=== PATIENT | female | born 1950 | race Two or more races ===

== ENCOUNTER 2022-02-21 22:25 | Inpatient (IN) | payer MEDICARE, MEDICAID ==
[~2022-02-21] VITALS: Ht 162.6 cm; Wt 59.4 kg
--- NOTE | 2022-02-21 22:50 | NUR ---
BLOOD COLLECTED AND SENT TO LAB
--- NOTE | 2022-02-21 22:50 | NUR ---
COVID SWAB DONE AND SENT TO LAB
--- NOTE | 2022-02-21 22:50 | NUR ---
PATIENT AT CT
--- NOTE | 2022-02-21 23:04 | NUR ---
SON IN LAW, MIGUELANGEL [phone]
--- NOTE | 2022-02-21 23:19 | NUR ---
INFLUENZA SWAB DONE AND SENT TO LAB
--- NOTE | 2022-02-21 23:19 | NUR ---
EKG DONE AT BEDSIDE
[2022-02-21] MEDS ORDERED: LEVETIRACETAM (500MG) 500 MG/5 ML VIAL IV ONE (23:33)
--- NOTE | 2022-02-21 23:36 | NUR ---
PATIENT HAD A SEIZURE, LASTED ABOUT A MINUTE. MD CALVERT
[2022-02-21] MEDS: LEVETIRACETAM (500MG) 1,000 MG in IV NS 0.9% 100 ML IV SCH (23:37)
[2022-02-21 23:51] LABS: SITE, VBG Other; VBG MetHb 0.5 %; VBG O2Hb 81.9 %; VENT MODE, VBG 4LPM N/C
[2022-02-22] MEDS ORDERED: IV NS 0.9% 1,000 ML BAG IV ONE ×2
[2022-02-22 00:09] LABS: BASOPHILS % (AUTO) 0.3 % (0.0-2.0); EOSINOPHILS % (AUTO) 0.5 % (0.0-6.0); HEMATOCRIT 32 % (33-45); HEMOGLOBIN 10.7 g/dL (11.5-14.8); LYMPHOCYTES % (AUTO) 27.6 % (20.0-44.0); MEAN CORPUSCULAR HGB CONC 33 g/dl (31.0-36.0); MEAN CORPUSCULAR VOLUME 85 fL (82-100); MONOCYTES # (AUTO) 0.8 K/uL (0.1-1.30); MONOCYTES % (AUTO) 7.6 % (2.0-12.0); NEUTROPHILS # (AUTO) 6.9 K/uL (1.8-8.9); PLATELET COUNT (AUTO) 288 K/uL (150-450); RED BLOOD CELL COUNT(AUTO) 3.78 MIL/uL (4.0-5.2); WHITE BLOOD COUNT (AUTO) 10.8 K/uL (4.3-11.0)
[2022-02-22 00:18] LABS: CARBON DIOXIDE 28 mmol/L (21-32); CHLORIDE 98 mmol/L (98-107); CREATININE 1.4 mg/dL (0.6-1.3); POTASSIUM 3.2 mmol/L (3.5-5.1); SODIUM SERUM 132 mmol/L (136-145); UREA NITROGEN, BLOOD 33 mg/dL (7-18)
[2022-02-22 00:21] LABS: ALANINE AMINOTRANSFERASE 27 U/L (12-78); ALBUMIN 3.5 g/dL (3.4-5.0); ALCOHOL, BLOOD < 3 mg/dL (0-0); ALKALINE PHOSPHATASE 82 U/L (46-116); ASPARTATE AMINOTRANSFERASE 15 U/L (15-37); BILIRUBIN,DIRECT 0.1 mg/dL (0.0-0.2); BILIRUBIN,TOTAL 0.5 mg/dL (0.2-1.0); TOTAL PROTEIN, SERUM 7.5 g/dL (6.4-8.2)
[2022-02-22 00:24] LABS: GLUCOSE 654 mg/dL (74-106)
[2022-02-22] MEDS ORDERED: LORAZEPAM INJ 2 MG/ML VIAL IV ONE ×2 (00:30)
--- NOTE | 2022-02-22 00:30 | NUR ---
md made aware another seizure, ativan 2mg ordered and given.
[2022-02-22 00:40] LABS: CREATINE KINASE, TOTAL 41 U/L (26-192)
[2022-02-22] MEDS ORDERED: Z GUARD REMEDY 4 OZ OINT TP PRN (01:00)
[2022-02-22] MEDS ORDERED: MORPHINE SULFATE INJ 4 MG/ML DISP.SYRIN IV PRN (01:00)
[2022-02-22] MEDS ORDERED: INSULIN REGULAR, HUMAN 100 UNIT/ML 10 ML VIAL SQ ONE (01:00)
[2022-02-22] MEDS ORDERED: DEXTROSE 50%-WATER 50 ML DISP.SYRIN IV PRN (01:00)
[2022-02-22] MEDS ORDERED: ACETAMINOPHEN 650 MG/SUPP.RECT RC PRN (01:00)
[2022-02-22] MEDS ORDERED: LORAZEPAM INJ 2 MG/ML VIAL IV PRN (01:00)
[2022-02-22] MEDS ORDERED: LEVETIRACETAM (500MG) 1,000 MG in IV NS 0.9% 100 ML IV SCH ×2 (01:00→21:00)
[2022-02-22] MEDS ORDERED: ONDANSETRON HCL/PF 4 MG/2 ML VIAL IVP PRN (01:00)
[2022-02-22] MEDS ORDERED: INSULIN REGULAR, HUMAN 100 UNIT/ML 10 ML VIAL ONE (01:09)
[2022-02-22] MEDS ORDERED: POTASSIUM CL. PREMIX PERIPHER. 50 ML ONE (01:09)
[2022-02-22] MEDS: POTASSIUM CL. PREMIX PERIPHER. 50 ML IV SCH ×4 (01:11→05:35)
[2022-02-22 01:14] LABS: THYROID STIMULATING HORMONE 3.641 uIU/mL (0.358-3.74)
[2022-02-22 01:20] LABS: BILIRUBIN,URINE NEGATIVE (NEGATIVE); COLOR,URINE YELLOW (YELLOW); LEUKOCYTE ESTERASE ,URINE NEGATIVE (NEGATIVE); NITRITE, URINE NEGATIVE (NEGATIVE); PH,URINE 5.5 (5.0-8.0); PROTEIN,URINE 2+ mg/dl (NEGATIVE); UGLUCOSE 3+ mg/dL (NEGATIVE); UROBILINOGEN,URINE 0.2 EU/dL (0.2)
[2022-02-22 01:23] LABS: BACTERIA,URINE Rare /HPF (None Seen); RBC,URINE 0-2 /HPF (0-2); SQUAMOUS EPITHELIAL CELL,UR Few /HPF (None Seen); WBC,URINE 0-2 /HPF (0-3)
--- NOTE | 2022-02-22 01:35 | NUR ---
GAVE REPORT TO PREMA CUNNINGHAM
--- NOTE | 2022-02-22 02:00 | NUR ---
BALLING MACHINE OPERATOR NOTE PT COME FROM ER WITH DX OF NEW ONSET SEIZURE. PT A/O X0, NOT ABLE TO VERBALIZE NEEDS. PT HAS BRUISES TO LEFT BREAST, AND LEFT BACK, SHOULDER. ADMISSION ASSESSMENT COMPLETED. PT RECEIVING POTASSIUM D/T K: 3.1. SAFETY MEASURES IN PLACE: BED IN LOW POSITION, SR UP X2. WILL CONTINUE TO MONITOR PT.
--- NOTE | 2022-02-22 02:09 | NUR ---
PATIENT TRANSFERED VIA ACLS PROTOCOL. TO BED 310-2.
[2022-02-22] MEDS ORDERED: POTASSIUM CHLORIDE 10 MEQ/50 ML PREMIXED IVPB FOR PERIPHERAL LINE IV ONE (02:30)
[2022-02-22 03:19] VITALS: BP_SYST 145; BP_SYST 85; BP_DIAS 59; BP_DIAS 60
[2022-02-22 04:56] VITALS: BP 181/87
[2022-02-22] MEDS: ENOXAPARIN SODIUM 40 MG/0.4 ML DISP.SYRIN SQ SCH ×2 (05:48→23:11)
[2022-02-22 07:00] VITALS: BP 191/91
--- NOTE | 2022-02-22 07:10 | NUR ---
TOLL SETTLEMENT CLERK CLOSING NOTE PT LEFT IN BED, IN STABLE CONDITION. WILL ENDORSE TO AM SHIFT NURSE FOR LEONARD.
[2022-02-22] MEDS: INSULIN REGULAR, HUMAN 100 UNIT/ML 3 ML VIAL SQ PRN ×3 (07:30→23:18)
--- NOTE | 2022-02-22 08:10 | NUR ---
SAFETY CLOTHING AND EQUIPMENT DEVELOPER OPENING NOTE RECEIVED PATIENT ON BED. PATIENT LETHARGIC. NO EYE OPENING, LOCALIZES PAIN. SLUGGISH PUPILLARY REACTION (S/P CATARACT EXTRACTION HX). ON ROOM AIR WITH EQUAL AND UNLABORED BREATHING SATURATING AT 96%. WITH IV ACCESS ON THE LEFT WRIST G20, WITH NS RUNNING AT 75 ML/HR, INFUSING WELL. WITH LOZANO CATHETER TO URINE BAG, WITH LIGHT YELLOW URINE DRAINING VIA GRAVITY. WITH BILATERAL RESTRAINT RELATED TO PULLINJG OUT OF LINES. SAFETY MEASURES ENSURED WITH BED ON LOWEST, LOCKED POSITION, CALL LIGHT WITHIN REACH AT ALL TIMES. WILL CONTINUE WITH PLAN OF CARE.
[2022-02-22] MEDS: BLOOD SUGAR DIAGNOSTIC 1 EACH STRIP IN SCH ×4 (08:43→23:11)
[2022-02-22] MEDS: PANTOPRAZOLE 40 MG VIAL IV SCH (08:51)
[2022-02-22] MEDS ORDERED: ERGO500093 PO (10:02)
[2022-02-22] MEDS ORDERED: OMEP20CA15 PO (10:02)
[2022-02-22] MEDS ORDERED: DONE5TAB34 PO (10:02)
[2022-02-22] MEDS ORDERED: ASPI-1420 PO (10:02)
[2022-02-22] MEDS ORDERED: ATOR10TA PO (10:02)
[2022-02-22] MEDS ORDERED: FERR325T24 PO (10:02)
[2022-02-22] MEDS ORDERED: METF-440 PO (10:02)
[2022-02-22] MEDS ORDERED: LINA5TAB PO (10:02)
[2022-02-22] MEDS ORDERED: LOSA50TA39 PO (10:02)
[2022-02-22] MEDS ORDERED: GLIM4TAB37 PO (10:02)
[2022-02-22] MEDS ORDERED: INSU100I26 SQ (10:55)
[2022-02-22] MEDS ORDERED: CYAN10006 PO (10:55)
[2022-02-22 12:00] VITALS: BP 161/98
--- NOTE | 2022-02-22 12:00 | NUR ---
DRY CHARGE PROCESS ATTENDANT NOTE PATIENT NOTED TO BE RESTLESS DURING VS CHECK KICKING AND WAVING HER ARMS.
[2022-02-22] MEDS: LEVETIRACETAM (500MG) 1,000 MG in IV NS 0.9% 100 ML IV SCH (12:21)
[2022-02-22 16:00] VITALS: BP 161/98
--- NOTE | 2022-02-22 17:00 | NUR ---
CANVAS BASTER JUMPBASTING NOTE PATIENT NOTED TO BE RESTLESS DURING VS CHECK KICKING AND WAVING HER ARMS.
--- NOTE | 2022-02-22 17:33 | NUR ---
HOME HEALTH INFORMATION [facility]. [address] [facility] [place] [address] TEL NO. FAX NO.
[2022-02-22] MEDS: IV NS 0.9% 1,000 ML IV PRN (17:44)
[2022-02-22] MEDS: ATORVASTATIN 10 MG TABLET PO SCH (18:00)
--- NOTE | 2022-02-22 19:04 | NUR ---
ANNEALING TORCH OPERATOR NOTE Patient on bed resting in bed and becomes combative with tactile stimulus. Mumbles sounds but incoherent. On nasal cannula @ 3L with no signs of distress noted. IV access on the left wrist G20 with NS running @ 75ml/hr, infusing well. providd left arm sling but patient keeps on removing. On rosas catheter to urine bag with light yellow urine. With bilateral restraint related to pulling out of lines. Safety measures given with bed on lowest. locked position, call light within reach. Endorsed to next shift for continuity of care.
--- NOTE | 2022-02-22 19:35 | NUR ---
CORN GRINDER OPENING NOTE Patient on bed resting in bed and becomes combative with tactile stimulus. Mumbles sounds but incoherent. On room air with no signs of distress noted. IV access on the left wrist G20 with NS running @ 75ml/hr, infusing well. provided left arm sling but patient keeps on removing. On rosas catheter to urine bag with light yellow urine. With bilateral restraint related to pulling out of lines. Safety measures given with bed on lowest. locked position, call light within reach.
[2022-02-22 20:00] VITALS: BP 165/96
[2022-02-22] MEDS: LEVETIRACETAM (500MG) 500 MG in IV NS 0.9% 100 ML IV SCH (21:21)
[2022-02-23] VITALS: BP 100/69
--- NOTE | 2022-02-23 | NUR ---
RN NOTE PT PULLED OUT BOTH IVS. CATHETER INTACT. CLEAN DRY DRESISNG PLACED. NEW IV ACCESS ON THE L HAND 22G. TOLERATED WELL.
[2022-02-23 04:00] VITALS: BP 150/64
[2022-02-23] MEDS: BLOOD SUGAR DIAGNOSTIC 1 EACH STRIP IN SCH ×3 (05:00→17:38)
[2022-02-23] MEDS: INSULIN REGULAR, HUMAN 100 UNIT/ML 3 ML VIAL SQ PRN ×3 (05:01→17:41)
[2022-02-23 05:34] LABS: BASOPHILS # (AUTO) 0.1 K/uL (0.0-0.2); BASOPHILS % (AUTO) 0.4 % (0.0-2.0); HEMATOCRIT 31 % (33-45); HEMOGLOBIN 10.6 g/dL (11.5-14.8); LYMPHOCYTES # (AUTO) 1.6 K/uL (0.8-4.8); LYMPHOCYTES % (AUTO) 11.3 % (20.0-44.0); MEAN CORPUSCULAR HGB CONC 34 g/dl (31.0-36.0); MEAN CORPUSCULAR VOLUME 83 fL (82-100); MONOCYTES # (AUTO) 0.7 K/uL (0.1-1.30); MONOCYTES % (AUTO) 5.2 % (2.0-12.0); NEUTROPHILS % (AUTO) 83.1 % (43.0-81.0); PLATELET COUNT (AUTO) 284 K/uL (150-450); RED BLOOD CELL COUNT(AUTO) 3.79 MIL/uL (4.0-5.2); WHITE BLOOD COUNT (AUTO) 14.4 K/uL (4.3-11.0)
[2022-02-23 05:59] LABS: CALCIUM, SERUM 8.6 mg/dL (8.5-10.1); CREATININE 0.9 mg/dL (0.6-1.3); MAGNESIUM 1.6 mg/dL (1.8-2.4); PHOSPHORUS 2.1 mg/dL (2.5-4.9)
[2022-02-23 06:04] LABS: POTASSIUM 2.7 mmol/L (3.5-5.1)
[2022-02-23 06:11] LABS: THYROID STIMULATING HORMONE 0.277 uIU/mL (0.358-3.74)
--- NOTE | 2022-02-23 06:30 | NUR ---
RN NOTE PT K 2.7 THIS MORNING REPORTED TO PRODUCTION TOOL ENGINEER KAMILLA WITH ORDER FOR KCL 60 MEQ X1 ORDER NOTED.
--- NOTE | 2022-02-23 06:31 | NUR ---
TUBER HELPER CLOSING NOTE Patient on bed resting in bed and becomes combative with tactile stimulus. Mumbles sounds but incoherent. On room air with no signs of distress noted. IV access on the left hand G22 with NS running @ 75ml/hr, infusing well. provided left arm sling but patient keeps on removing. On rosas catheter to urine bag with light yellow urine with total ouput of 1450cc. With bilateral restraint related to pulling out of lines. Safety measures given with bed on lowest. locked position, call light within reach. will endorse care to day shift nurse.
--- NOTE | 2022-02-23 07:29 | NUR ---
HOSE SPRAYER OPENING NOTE RECEIVED PT ASLEEP IN BED, EASILY AROUSED. PT A/O X0, OPENS EYES TO STIMULI, LETHARGIC. ON ROOM AIR, TOLERATING WELL. NO SOB NOTED. NOT ANY SIGN OF RESPIRATORY DISTRESS. ON TELE ACCESSORIES REPAIRER WITH CURRENT READING OF SINUS TACH, HR 105. NO SIGNS OF CARDIAC DISTRESS NOTED AT THIS TIME. IV ACCESS IN LEFT HAND G#20 INTACT AND PATENT WITH NS INFUSING AT 75ML/HR. SAFETY MEASURES IN PLACE: BED IN LOWEST AND LOCKED POSITION, SIDE RAILS UPX2, BED ALARM ON, AND CALL LIGHT WITHIN REACH. WILL CONTINUE TO MONITOR PT.
[2022-02-23] MEDS: POTASSIUM CHLORIDE 10 MEQ/50 ML PREMIXED IVPB FOR PERIPHERAL LINE IV SCH ×6 (07:31→13:05)
[2022-02-23 08:00] VITALS: BP 124/87
[2022-02-23] MEDS: FERROUS SULFATE (325 MG) 325 MG/TAB TABLET PO SCH (09:00)
[2022-02-23] MEDS: DONEPEZIL 5 MG TABLET PO SCH (09:00)
[2022-02-23] MEDS: LOSARTAN POTASSIUM 50 MG TABLET PO SCH (09:00)
[2022-02-23] MEDS: ASPIRIN EC 81 MG TABLET.DR PO SCH (09:00)
[2022-02-23] MEDS: PANTOPRAZOLE 40 MG VIAL IV SCH (09:20)
[2022-02-23] MEDS: LEVETIRACETAM (500MG) 500 MG in IV NS 0.9% 100 ML IV SCH (09:22)
[2022-02-23] MEDS: POTASSIUM PHOSPHATE MM 7.5 MMOL in IV NS 0.9% 100 ML IV SCH ×4 (11:54→22:04)
[2022-02-23] MEDS: IV NS 0.9% 1,000 ML IV PRN (11:56)
--- NOTE | 2022-02-23 11:58 | NUR ---
RN NOTE POTASSIUM PHOSPHATE IV NOT ADMINISTERED. MEDICATION NOT AVAILABLE. FOLLOWED UP WITH PHARMACIST AND PER PHARMACIST THEY WILL SEND THE MEDICATION. Addendum: 02/23/22 at 1653 by ZENON ROD RN DELETE ENTRY WRONG TIME
[2022-02-23] MEDS: Magnesium 1GM/D5W 100ML PREMIX 100 ML IV SCH ×2 (12:31→13:49)
--- NOTE | 2022-02-23 14:25 | NUR ---
RN NOTE ASSESSED PT'S BP AND IT WAS 180/115 AUTOMATIC. REASSESSED PT'S BP USING MANUALLY AND IT WAS 170/100. CALLED DR. SANABRIA AND MADE HIM AWARE OF PT'S BP AND THAT PT IS CURRENTLY NPO. DR. KHAN ORDERED TO START PT ON CLONIDINE PATCH 0.2MG EVERY 7DAYS. ORDERS CARRIED OUT.
[2022-02-23] MEDS ORDERED: CLONIDINE HCL 0.2MG/24H PTWK 1 EA PATCH TD SCH (15:00)
--- NOTE | 2022-02-23 15:00 | NUR ---
RN NOTE POTASSIUM PHOSPHATE IV NOT ADMINISTERED. MEDICATION NOT AVAILABLE. FOLLOWED UP WITH PHARMACIST AND PER PHARMACIST THEY WILL SEND THE MEDICATION.
[2022-02-23 16:00] VITALS: BP 156/85
--- NOTE | 2022-02-23 16:27 | NUR ---
RN NOTE POTASSIUM PHOSPHATE IV MEDICATION JUST RECEIVED FROM PHARMACY AND ADMINISTERED TO THE PT ORDERED.
[2022-02-23] MEDS: ATORVASTATIN 10 MG TABLET PO SCH (17:22)
[2022-02-23] MEDS ORDERED: POTASSIUM CHLORIDE 10 MEQ/50 ML PREMIXED IVPB FOR PERIPHERAL LINE IV ONE (17:30)
--- NOTE | 2022-02-23 19:35 | NUR ---
SEPTIC CLEANER OPENING NOTE PT ASLEEP IN BED, EASILY AROUSED. PT A/O X0, OPENS EYES TO STIMULI, LETHARGIC. ON ROOM AIR, TOLERATING WELL. NO SOB NOTED. NOT ANY SIGN OF RESPIRATORY DISTRESS. ON TELE SOLE RUFFER WITH CURRENT READING OF SINUS TACH, HR 102. NO SIGNS OF CARDIAC DISTRESS NOTED AT THIS TIME. IV ACCESS IN RAMIREZ G#18 MIDLINE INTACT AND PATENT WITH POTASSIUM PHOSPHATE INFUSING. TOLERATING WELL. IV ACCESS ON LEFT HAND G#20 INTACT AND PATENT SALINE LOCK. ALL NEEDS ATTENDED. KEPT CLEAN AND COMFORTABLE AT ALL TIMES. SAFETY MEASURES IN PLACE: BED IN LOWEST AND LOCKED POSITION, SIDE RAILS UPX2, BED ALARM ON, AND CALL LIGHT WITHIN REACH.
--- NOTE | 2022-02-23 19:42 | NUR ---
CARDIAC CARE NURSE CLOSING NOTE PT ASLEEP IN BED, EASILY AROUSED. PT A/O X0, OPENS EYES TO STIMULI, LETHARGIC. ON ROOM AIR, TOLERATING WELL. NO SOB NOTED. NOT ANY SIGN OF RESPIRATORY DISTRESS. ON TELE HEAD SHIPPER WITH CURRENT READING OF SINUS TACH, HR 102. NO SIGNS OF CARDIAC DISTRESS NOTED AT THIS TIME. IV ACCESS IN RAMIREZ G#18 MIDLINE INTACT AND PATENT WITH POTASSIUM PHOSPHATE INFUSING. TOLERATING WELL. IV ACCESS ON LEFT HAND G#20 INTACT AND PATENT SALINE LOCK. ALL NEEDS ATTENDED. KEPT CLEAN AND COMFORTABLE AT ALL TIMES. SAFETY MEASURES IN PLACE: BED IN LOWEST AND LOCKED POSITION, SIDE RAILS UPX2, BED ALARM ON, AND CALL LIGHT WITHIN REACH. ENDORSED TO COMMUNITY MARKETING MANAGER NURSE FOR LEONARD.
[2022-02-23] MEDS: LEVETIRACETAM (500MG) 250 MG in IV NS 0.9% 100 ML IV SCH (20:35)
[2022-02-23 20:53] VITALS: BP 164/76
[2022-02-23] MEDS: ENOXAPARIN SODIUM 40 MG/0.4 ML DISP.SYRIN SQ SCH (21:54)
[2022-02-24] MEDS: BLOOD SUGAR DIAGNOSTIC 1 EACH STRIP IN SCH ×5 (00:07→21:07)
[2022-02-24] MEDS: INSULIN REGULAR, HUMAN 100 UNIT/ML 3 ML VIAL SQ PRN ×5 (00:08→21:08)
[2022-02-24 00:21] VITALS: BP 155/79
[2022-02-24 04:54] VITALS: BP 167/96
--- NOTE | 2022-02-24 06:16 | NUR ---
RN NOTE PT NOTED MORE AWAKE AND ALERT ABLE TO FOLLOW SIMPLE COMMANDS. NURSING SWALLOW EVAL WAS DONE AT BEDSIDE PT WAS ABLE TO DRINK WATER WITHOUT COUGHING. SWALLOW ORDER PLACED TO SEE IF PTS DIET CAN BE ADVANCED.
[2022-02-24 06:30] LABS: BASOPHILS % (AUTO) 0.2 % (0.0-2.0); HEMATOCRIT 32 % (33-45); HEMOGLOBIN 10.4 g/dL (11.5-14.8); LYMPHOCYTES # (AUTO) 1.6 K/uL (0.8-4.8); LYMPHOCYTES % (AUTO) 11.5 % (20.0-44.0); MEAN CORPUSCULAR HGB CONC 33 g/dl (31.0-36.0); MEAN CORPUSCULAR VOLUME 84 fL (82-100); MONOCYTES # (AUTO) 0.8 K/uL (0.1-1.30); MONOCYTES % (AUTO) 6.1 % (2.0-12.0); NEUTROPHILS # (AUTO) 11.3 K/uL (1.8-8.9); NEUTROPHILS % (AUTO) 82.2 % (43.0-81.0); PLATELET COUNT (AUTO) 265 K/uL (150-450); RED BLOOD CELL COUNT(AUTO) 3.73 MIL/uL (4.0-5.2); WHITE BLOOD COUNT (AUTO) 13.7 K/uL (4.3-11.0)
--- NOTE | 2022-02-24 06:36 | NUR ---
LITHOGRAPHIC PLATE MAKER APPRENTICE CLOSING NOTE PT ASLEEP IN BED, EASILY AROUSED. PT A/O X1-2, OPENS EYES TO STIMULI. ON ROOM AIR, TOLERATING WELL. NO SOB NOTED. NOT ANY SIGN OF RESPIRATORY DISTRESS. ON TELE CORE CHECKER WITH CURRENT READING OF SINUS TACH, HR 105. NO SIGNS OF CARDIAC DISTRESS NOTED AT THIS TIME. IV ACCESS IN RAMIREZ G#18 MIDLINE INTACT AND PATENT S/L. TOLERATING WELL. IV ACCESS ON LEFT HAND G#20 INTACT AND PATENT SALINE LOCK. ALL NEEDS ATTENDED. KEPT CLEAN AND COMFORTABLE AT ALL TIMES. SAFETY MEASURES IN PLACE: BED IN LOWEST AND LOCKED POSITION, SIDE RAILS UPX2, BED ALARM ON, AND CALL LIGHT WITHIN REACH. WILL ENDORSE CARE TO DAY SHIFT NURSE.
[2022-02-24 07:01] LABS: CALCIUM, SERUM 8.5 mg/dL (8.5-10.1); CREATININE 1.1 mg/dL (0.6-1.3); MAGNESIUM 2.3 mg/dL (1.8-2.4); PHOSPHORUS 4.6 mg/dL (2.5-4.9); POTASSIUM 3.5 mmol/L (3.5-5.1)
--- NOTE | 2022-02-24 07:28 | NUR ---
ROADS SUPERVISOR OPENING NOTE RECEIVED PT ASLEEP IN BED, EASILY AROUSED. PT A/O X1, WITH EPISODES OF CONFUSION. REORIENTED PT NEEDED. ON ROOM AIR, TOLERATING WELL. NO SOB NOTED. NOT ANY SIGN OF RESPIRATORY DISTRESS. ON TELE BATTERY STACKER WITH CURRENT READING OF SINUS TACH, HR 101. NO C/O CARDIAC DISTRESS VOICED OUT AT THIS TIME. IV ACCESS IN RAMIREZ G#18 MIDLINE AND LEFT HAND G#20 INTACT AND PATENT. SAFETY MEASURES IN PLACE: BED IN LOWEST AND LOCKED POSITION, SIDE RAILS UPX2, BED ALARM ON, KEPT HOB ELEVATED AND CALL LIGHT WITHIN REACH. WILL CONTINUE TO MONITOR PT.
[2022-02-24 08:00] VITALS: BP 158/93
[2022-02-24] MEDS: DONEPEZIL 5 MG TABLET PO SCH (09:00)
[2022-02-24] MEDS: ASPIRIN EC 81 MG TABLET.DR PO SCH (09:00)
[2022-02-24] MEDS: FERROUS SULFATE (325 MG) 325 MG/TAB TABLET PO SCH (09:00)
[2022-02-24] MEDS: LOSARTAN POTASSIUM 50 MG TABLET PO SCH (09:00)
[2022-02-24] MEDS: PANTOPRAZOLE 40 MG VIAL IV SCH (09:31)
[2022-02-24] MEDS: LEVETIRACETAM (500MG) 250 MG in IV NS 0.9% 100 ML IV SCH ×2 (09:41→20:23)
--- NOTE | 2022-02-24 13:26 | NUR ---
RN NOTE REASSESSED PT'S CURRENT ORIENTATION AND PT IS NOW A/OX1. PT IS REQUESTING FOR WATER. NURSING SWALLOW EVALUATION DONE WITH WATER AND PT PASSED. CALLED DR. KHAN AND MADE HIM AWARE AND ASKED HIM IF OK TO START THE PT ON CLEAR LIQUID DIET WHILE WAITING FOR THE ST FOR SWALLOW EVAL. DR. KHAN AGREED. ORDERS CARRIED OUT.
[2022-02-24 16:00] VITALS: BP 157/86
[2022-02-24] MEDS: ATORVASTATIN 10 MG TABLET PO SCH (18:14)
--- NOTE | 2022-02-24 18:20 | NUR ---
RN NOTE CALLED DR. KHAN AND MADE HIM AWARE THAT PT IS NOW ON CLEAR LIQUID DIET AND CLARIFIED THE NPO SLIDING SCALE ORDER. PER DR. KHAN TO DC PREVIOUS ORDER OF SLIDING SCALE AND CHANGED TO MILD ACHS SLIDING SCALE. ORDERS CARRIED OUT.
[2022-02-24] MEDS ORDERED: DEXTROSE 50%-WATER 50 ML DISP.SYRIN IV PRN (18:30)
--- NOTE | 2022-02-24 19:19 | NUR ---
DIRECTOR OF PUBLIC RELATIONS CLOSING NOTE PT ASLEEP IN BED, EASILY AROUSED. PT A/O X1, WITH EPISODES OF CONFUSION. REORIENTED PT NEEDED. ON ROOM AIR, TOLERATING WELL. NO SOB NOTED. NOT ANY SIGN OF RESPIRATORY DISTRESS. ON TELE ROCK WOOL APPLICATOR WITH CURRENT READING OF SINUS RHYTHM, HR 98. NO C/O CARDIAC DISTRESS VOICED OUT AT THIS TIME. IV ACCESS IN RAMIREZ G#18 MIDLINE AND LEFT HAND G#20 INTACT AND PATENT. LOZANO CATH IN PLACE AND DRAINING WELL. ALL NEEDS ATTENDED. KEPT CLEAN AND COMFORTABLE. TURNED AND REPOSITIONED Q2HRS AND NEEDED. SAFETY MEASURES IN PLACE: BED IN LOWEST AND LOCKED POSITION, SIDE RAILS UPX2, BED ALARM ON, KEPT HOB ELEVATED AND CALL LIGHT WITHIN REACH. ENDORSED TO PATTERN DATA OPERATOR NURSE FOR LEONARD.
--- NOTE | 2022-02-24 19:30 | NUR ---
PRODUCT INSPECTION SUPERVISOR OPENING NOTE RECEIVED PATIENT IN BED, ALERT AND ORIENTED X 2. ABLE TO MAKE NEEDS KNOWN. AFEBRILE AND NOT IN ANY FORM OF ACUTE DISTRESS. BREATHING EVEN AND NON LABORED. NO C/O PAIN OR DISCOMFORT AT THIS TIME. WITH IV ACCESS ON RAMIREZ 18G MIDLINE AND L HAND 22G-SL. ON TELE MONITORING. WITH SOFT WRIST RESTRAINTS, NOTED WITH GOOD SKIN INTEGRITY AND CIRCULATION. SAFETY MEASURES IN PLACE. KEPT BED IN LOCKED AND IN LOW POSITION. SIDE RAILS UP X2. ADVISED TO USE THE CALL LIGHT WHEN IN NEED OF ASSISTANCE.
[2022-02-24] MEDS: ENOXAPARIN SODIUM 40 MG/0.4 ML DISP.SYRIN SQ SCH (21:09)
[2022-02-25 05:39] LABS: ABG BASE EXCESS 4.5 mmol/L; ABG OXYGEN SATURATION 94.7 % (92.0-98.5); ABG PCO2 34.6 mmHg (35.0-45.0); ABG PH 7.517 (7.350-7.450); ABG PO2 71.7 mmHg (75.0-100.0); AaDO2 36.6 mmHg; COHb 0.2 % (0.5-1.5); MetHb 0.1 % (0.0-1.5); O2Hb 94.4 % (94.0-97.0); SITE, ABG Right Brachial; VENT MODE, BG ROOM AIR
--- NOTE | 2022-02-25 05:45 | NUR ---
STAT ABG completed
--- NOTE | 2022-02-25 06:30 | NUR ---
CLOTH OPENER HAND CLOSING NOTE PATIENT IN BED, SLEEPING INTERMITTENTLY. ABLE TO MAKE NEEDS KNOWN. AFEBRILE AND NOT IN ANY FORM OF ACUTE DISTRESS. BREATHING EVEN AND NON LABORED. NO C/O PAIN OR DISCOMFORT THROUGHOUT THE SHIFT. ON TELE MONITORING WITH CURRENT READING OF SR 89 WITH BBB. WITH IV ACCESS ON RAMIREZ 18G MIDLINE. WITH SOFT WRIST RESTRAINTS, NOTED WITH GOOD SKIN INTEGRITY AND CIRCULATION. WITH INTACT LOZANO CATHETER DRAINING WELL WITH YELLOW URINE OUTPUT, NO HEMATURIA OR SEDIMENTS NOTED WITH APPROX. 900ML. MONITORED FOR ANY S/SX. OF HYPO/HYPERGLYCEMIA. MEDICATED ORDERED. SAFETY MEASURES IN PLACE. KEPT BED IN LOCKED AND IN LOW POSITION. SIDE RAILS UP X2. ADVISED TO USE THE CALL LIGHT WHEN IN NEED OF ASSISTANCE. ALL NURSING NEEDS ATTENDED. ENDORSED TO INCOMING SHIFT FOR CONTINUITY OF CARE.
[2022-02-25] MEDS: BLOOD SUGAR DIAGNOSTIC 1 EACH STRIP IN SCH ×2 (06:31→11:25)
[2022-02-25 06:40] LABS: ALBUMIN 2.8 g/dL (3.4-5.0); BILIRUBIN,TOTAL 0.7 mg/dL (0.2-1.0); CALCIUM, SERUM 8.3 mg/dL (8.5-10.1); PHOSPHORUS 3.1 mg/dL (2.5-4.9); POTASSIUM 3.1 mmol/L (3.5-5.1); TOTAL PROTEIN, SERUM 6.2 g/dL (6.4-8.2)
[2022-02-25 07:42] LABS: BASOPHILS % (AUTO) 0.4 % (0.0-2.0); EOSINOPHILS % (AUTO) 0.2 % (0.0-6.0); HEMATOCRIT 30 % (33-45); LYMPHOCYTES # (AUTO) 2.5 K/uL (0.8-4.8); LYMPHOCYTES % (AUTO) 20.8 % (20.0-44.0); MEAN CORPUSCULAR HGB CONC 33 g/dl (31.0-36.0); MEAN CORPUSCULAR VOLUME 83 fL (82-100); MONOCYTES # (AUTO) 0.8 K/uL (0.1-1.30); MONOCYTES % (AUTO) 7.1 % (2.0-12.0); NEUTROPHILS # (AUTO) 8.5 K/uL (1.8-8.9); NEUTROPHILS % (AUTO) 71.5 % (43.0-81.0); PLATELET COUNT (AUTO) 240 K/uL (150-450); RED BLOOD CELL COUNT(AUTO) 3.59 MIL/uL (4.0-5.2); WHITE BLOOD COUNT (AUTO) 11.9 K/uL (4.3-11.0)
--- NOTE | 2022-02-25 07:53 | NUR ---
PHOTOGRAPHY PROFESSOR OPENING NOTE PATIENT AWAKE IN BED A/OX1-2 ,AFEBRILE AND NOT IN ANY FORM OF ACUTE DISTRESS. BREATHING EVEN AND NON LABORED. NO C/O PAIN OR DISCOMFORT THROUGHOUT THE SHIFT. ON TELE MONITORING WITH CURRENT READING OF SR 90 WITH BBB. WITH IV ACCESS ON RAMIREZ 18G MIDLINE. WITH SOFT WRIST RESTRAINTS, NOTED WITH GOOD SKIN INTEGRITY AND CIRCULATION. WITH INTACT LOZANO CATHETER DRAINING WELL WITH YELLOW URINE OUTPUT, NO HEMATURIA OR SEDIMENTS NOTED SAFETY MEASURES IN PLACE. KEPT BED IN LOCKED AND IN LOW POSITION. SIDE RAILS UP X2. ADVISED TO USE THE CALL LIGHT WHEN IN NEED OF ASSISTANCE. WILL CONTINUE TO MONITOR.
[2022-02-25 08:12] VITALS: BP 151/87
[2022-02-25] MEDS: ASPIRIN EC 81 MG TABLET.DR PO SCH (08:33)
[2022-02-25] MEDS: DONEPEZIL 5 MG TABLET PO SCH (08:33)
[2022-02-25] MEDS: FERROUS SULFATE (325 MG) 325 MG/TAB TABLET PO SCH (08:33)
[2022-02-25] MEDS: LOSARTAN POTASSIUM 50 MG TABLET PO SCH (08:34)
[2022-02-25] MEDS: PANTOPRAZOLE 40 MG VIAL IV SCH (08:34)
[2022-02-25] MEDS: LEVETIRACETAM (500MG) 250 MG in IV NS 0.9% 100 ML IV SCH (08:41)
[2022-02-25] MEDS ORDERED: POTASSIUM CHLORIDE 20 MEQ POWDER PACKET PO SCH (10:00)
[2022-02-25] MEDS: INSULIN REGULAR, HUMAN 100 UNIT/ML 3 ML VIAL SQ PRN (11:30)
[2022-02-25] MEDS ORDERED: LEVE500T9 PO (14:28)
[2022-02-25] MEDS ORDERED: LEVE250T4 PO (14:30)
[2022-02-25 15:47] VITALS: BP 143/84
[2022-02-25] MEDS ORDERED: LEVETIRACETAM (250 MG) 250 MG TABLET PO SCH (17:10)
[2022-02-25] MEDS: ATORVASTATIN 10 MG TABLET PO SCH (17:11)
--- NOTE | 2022-02-25 18:06 | NUR ---
DISCHARGED NOTE PATIENT DISCHARGED TO HOME IN STABLE CONDITION. A/OX2. ON RA, TOLERATING WELL. NO SOB NOTED. NOT IN ANY FORM OF ACUTE DISTRESS. BREATHING EVEN AND NON LABORED. NO C/O PAIN OR DISCOMFORT THROUGHOUT THE SHIFT. ON TELE MONITORING WITH CURRENT READING OF SR 89 WITH BBB. IV ACCESS REMOVED, NO ACTIVE BLEEDING NOTED. VITAL SIGNS TAKEN, STABLE AND RECORDED. ALL BELONGINGS ACCOUNTED TO THE PATIENT/DAUGHTER. DISCHARGED INSTRUCTIONS RELAYED TO DAUGHTER. PATIENT LEFT THE UNIT VIA WHEELCHAIR ACCOMPANIED BY DAUGHTER. DISCHARGED.
== END 2022-02-25 17:45 | disposition home health service (06) | DRG 100 ==
LOC: ER 22:27 → EDBD 22:27 → TELE 02-22 00:44
PROVIDERS: ADMIT Nurse Practitioner Acute Care
DX: R56.9 Unspecified convulsions (principal); G93.41 Metabolic encephalopathy; N17.0 Acute kidney failure with tubular necrosis; E87.1 Hypo-osmolality and hyponatremia; E11.65 Type 2 diabetes mellitus with hyperglycemia; I10 Essential (primary) hypertension; E87.6 Hypokalemia; Z20.822 Contact with and (suspected) exposure to COVID-19
CPT/HCPCS: 36415; 36600; 70450-TC; 71045-TC; 80048-TC; 80053-TC; 80076-TC; 81001; 82550-TC; 82803-TC; 82962-TC; 83735-TC; 83880; 84100-TC; 84443-TC; 84484-TC; 85025-TC; 87081-TC; 87086-TC; 92526; 92611-TC; 94799-TC; 97116-TC; 97530-TC; A4565; C9113; C9803; G0378; G0480; J1650; J1815; J1953; J2060; J3475; J3480; J3490; J7030; J7042; J7050